=== PATIENT | female | born 1935 | race Caucasian/White ===

== ENCOUNTER 2017-12-23 08:18 | Outpatient (CLI) | payer MEDICARE ==
--- NOTE | 2017-12-23 11:21 | CT ---
CT ABDOMEN WITH AND WITHOUT IV CONTRAST: CT PELVIS WITH AND WITHOUT IV CONTRAST: 12/23/2017 HISTORY: Microscopic hematuria. History of prior appendectomy. COMPARISON: None available. FINDINGS: There is suggestion of irregular soft tissue density seen in the region of the neck of the gallbladde r with associated calcification. Further evaluation with gallbladder ultrasound is recommended. A m ass in this region cannot be entirely excluded, although this could possibly represent a prominent fo ld with adjacent gallbladder calculus, but this is difficult to definitely determine on this exam. The pancreas is fatty replaced but otherwise normal in appearance. The liver, spleen, bilateral adrenal glands, and kidneys demonstrate a normal CT appearance. There i s a tiny, subcentimeter, whf-flehk-mi-characterize, hypodense lesion in the mid portion, left kidney, as well as at the inferior pole right kidney, statistically likely representing very tiny cysts. There is a small hiatal hernia. The small bowel loops are normal in caliber. Vascular calcification in the abdominal aorta and iliac arteries. There is a complex cystic and solid lesion within the pelvis with multiple septations within the cyst ic component of this lesion. There is adjacent soft tissue density, which is presumed to represent t he patient's uterus. This is very closely adjacent to the uterus but also extends into the adnexal r egions. Findings are worrisome for a neoplastic process, but the exact origin is difficult to determ ine based on this exam, and findings may be related to a complex ovarian cystic neoplasm, although th is could potentially arise or involve the uterus. This complex cystic and solid mass measures 12.5 c m craniocaudal x 11.9 cm AP x 8.7 cm transverse. There is no free fluid, fluid collection, or lymphadenopathy seen in the abdomen or pelvis. Multilevel degenerative changes are seen in the spine. Vacuum phenomenon is seen at multiple levels of the lumbar spine. There are gas densities seen within the central canal, posterior to the lower a spect of the L4 vertebral body, which may represent gas within small, sequestered disk fragments at t his level. No renal or ureteral calculi are seen bilaterally, and there is no hydronephrosis. The most distal u reters are not well visualized on this exam due to the cystic and solid mass within the pelvis, but t here is certainly no evidence of hydronephrosis. IMPRESSION: 1. Irregular soft tissue density in the neck of the gallbladder with associated calcification. A ma ss cannot be entirely excluded. This could potentially represent a prominent gallbladder fold. Furt her evaluation with a right upper quadrant ultrasound is recommended. The common duct is normal in c aliber, and there is no intrahepatic biliary ductal dilatation. 2. Complex cystic and solid pelvic mass, which could be ovarian in origin, although this does result in mass effect on the uterus and could potentially arise from the uterus or involve the uterus. An obstetrical/gynecological consultation is recommended for further evaluation. Ultrasound may be bene ficial for further characterization. 3. No evidence of lymphadenopathy. 4. No renal or ureteral calculi are seen bilaterally, and there is no hydronephrosis. 5. Distal ureters bilaterally are not well visualized due to the cystic and solid mass in the pelvis . 6. No evidence of lymphadenopathy. CODE T POS: [facility]
== END 2017-12-23 08:19 | disposition home or self-care (01) ==
LOC: BICCT 08:18
PROVIDERS: ATTEND Urology
DX: R31.29 Other microscopic hematuria (principal); K82.8 Other specified diseases of gallbladder; R19.00 Intra-abdominal and pelvic swelling, mass and lump, unspecified site
CPT/HCPCS: 74178; 81001; 82565; 87086; 88112

== ENCOUNTER 2018-01-12 08:03 | Outpatient (CLI) | payer MEDICARE ==
--- NOTE | 2018-01-12 09:34 | ULT ---
SONOGRAM RIGHT UPPER QUADRANT: Date: 01/12/18 HISTORY: Gallstones. Abnormal CAT scan. Follow-up. COMPARISON: CT abdomen dated 12/13/17. FINDINGS: Multiple shadowing stones are present within the distended gallbladder lumen. No soft tissue masses a re apparent. No gallbladder wall thickening or pericholecystic fluid. Common duct is 0.5 cm. Liver is diffusely echogenic and enlarged. No free fluid. IMPRESSION: 1. Cholelithiasis. No evidence of gallbladder soft tissue mass. 2. Hepatosteatosis. POS: [facility]
== END 2018-01-12 08:04 | disposition home or self-care (01) ==
LOC: BICULT 08:03
PROVIDERS: ATTEND Internal Medicine
DX: R93.5 Abnormal findings on diagnostic imaging of other abdominal regions, including retroperitoneum (principal); K80.20 Calculus of gallbladder without cholecystitis without obstruction; K76.0 Fatty (change of) liver, not elsewhere classified
CPT/HCPCS: 76705